=== PATIENT | female | born 2000 | race American Indian/Alaskan Native ===

== ENCOUNTER 2019-01-19 10:10 | Emergency (ER) | payer SELFPAY ==
--- NOTE | 2019-01-19 10:52 | Emergency Department Report ---
ED Female HPI - General Chief complaint: Urogenital-Female Stated complaint: VAGINAL ISSUES Time Seen by Provider: 01/19/19 10:30 Source: patient Mode of arrival: Ambulatory Limitations: No Limitations - History of Present Illness Initial comments: Patient is a 18-year-old female presents emergency room with complaints of pelvic cramping for 2 days. She has associated dysuria. States that she has also had some constipation and been straining to have a bowel movement. Patient had a bowel movement yesterday but was small and hard in consistency. she denies any abdominal pain, nausea, vomiting, diarrhea, fever, vaginal discharge, vaginal blisters or lesions. Last menstrual cycle was January 02. pt is sexually active and is concerned for STDs. Denies any STD in the past. she denies any past medical history or allergies medications. - Related Data Previous Rx's Medication Instructions Recorded Last Taken Type Docusate Sodium [Colace] 100 mg PO BID PRN #20 capsule 01/19/19 Unknown Rx Magnesium Citrate [Citrate of 300 ml PO ONCE #1 solution 01/19/19 Unknown Rx Magnesia] Allergies Allergy/AdvReac Type Severity Reaction Status Date / Time No Known Allergies Allergy Unverified 01/19/19 10:14 ED Review of Systems ROS: Stated complaint: VAGINAL ISSUES Other details as noted in HPI Comment: All other systems reviewed and negative ED Past Medical Hx - Past Medical History Previous Medical History?: No - Surgical History Past Surgical History?: No - Social History Smoking Status: Never Smoker Substance Use Type: Alcohol - Medications Home Medications: Home Medications Medication Instructions Recorded Confirmed Last Taken Type Docusate Sodium [Colace] 100 mg PO BID PRN #20 capsule 01/19/19 Unknown Rx Magnesium Citrate [Citrate of 300 ml PO ONCE #1 solution 01/19/19 Unknown Rx Magnesia] ED Physical Exam - General Limitations: No Limitations General appearance: alert, in no apparent distress - Head Head exam: Present: atraumatic, normocephalic - Eye Eye exam: Present: normal appearance - ENT ENT exam: Present: mucous membranes moist - GI/Abdominal GI/Abdominal exam: Present: soft. Absent: distended, tenderness, guarding, rebound, rigid - External exam: Present: normal external exam. Absent: erythema, swelling, lesions, lacerations, ecchymosis, bleeding Speculum exam: Present: vaginal discharge (white/foul odor), cervical discharge (white/foul odor), other (family sociologist: CORNELIUS brooks). Absent: erythema, vaginal bleeding, foreign body, tissue, laceration Bi-manual exam: Present: normal bi-manual exam. Absent: cervical motion tendernes, adnexal tenderness, adnexal mass ED Course Vital Signs 01/19/19 10:16 Temperature 98.8 F Pulse Rate 79 Respiratory 16 Rate Blood Pressure 142/82 O2 Sat by Pulse 99 Oximetry ED Medical Decision Making - Medical Decision Making Patient is a 18-year-old female presents emergency room with complaints of pelvic cramping for 2 days. She has associated dysuria. States that she has also had some constipation and been straining to have a bowel movement. Patient had a bowel movement yesterday but was small and hard in consistency. she denies any abdominal pain, nausea, vomiting, diarrhea, fever, vaginal discharge, vaginal blisters or lesions. Last menstrual cycle was January 02. pt is sexually active and is concerned for STDs. Denies any STD in the past. she denies any past medical history or allergies medications. vitals are normal. no abd tenderness on exam, normal bowel sounds. pelvic examination performed with family sociologist and white/foul odor discharge present, no CMT, no adnexal masses/tenderness, no clinic signs of PID. UA without evidence of UTI. urine preg negative. wet prep is normal. G/C swab sent. Patient treated prophylactically for G/C with azithromycin and ceftriaxone. pt given magnesium citrate and colace for her constipation, pt has no obstructive signs/sx. advised pt to please take medication as prescribed. Please increase your water and fiber intake. Please go to medical records in 1 week for results of your tests, you have been treated for these. please have your partner tested and treated as well. Abstain from sexual intercourse for 10 days. Please seen by the REHABILITATION AIDE or the health department for further STD testing. Return to the emergency room for any new or worsening symptoms. - Differential Diagnosis STD, BV, yeast, vaginitis, UTI, ovarian cyst, PID Critical care attestation.: If time is entered above; I have spent that time in minutes in the direct care of this critically ill patient, excluding procedure time. ED Disposition Clinical Impression: Pelvic cramping, Dysuria Constipation Qualifiers: Constipation type: unspecified constipation type Qualified Code(s): K59.00 - Constipation, unspecified Disposition: DC-01 TO HOME OR SELFCARE Is pt being admited?: No Does the pt Need Aspirin: No Condition: Stable Instructions: Constipation (ED), Sexually Transmitted Diseases (ED), Safe Sex (ED), High Fiber Diet (ED), Dysuria (ED) Additional Instructions: Please take medication as prescribed. Please increase your water and fiber intake. Please go to medical records in 1 week for results of your tests, you have been treated for these. please have your partner tested and treated as well. Abstain from sexual intercourse for 10 days. Please seen by the REHABILITATION AIDE or the health department for further STD testing. Return to the emergency room for any new or worsening symptoms. Prescriptions: Magnesium Citrate [Citrate of Magnesia] 300 ml PO ONCE #1 solution Docusate Sodium [Colace] 100 mg PO BID PRN #20 capsule PRN Reason: Constipation Referrals: HARJIT CONNER MD [Staff Physician] - 2-3 Days [facility] [Outside] - 2-3 Days Time of Disposition: 12:24 Print Language: SYRIAN
[2019-01-19 11:52] LABS: Bilirubin,Urine NEG (Negative); Blood,Urine NEG (Negative); Color,Urine Yellow (Yellow); Mucus,Urine FEW /HPF; Protein,Urine <15 mg/dL mg/dL (Negative); Urobilinogen,Urine < 2.0 mg/dL (<2.0)
[2019-01-19 12:06] LABS: HCG Qualitative,Urine Negative (Negative)
[2019-01-19] MEDS ORDERED: LIDOCAINE-MPF (1%) 10 MG/1 ML VIAL 5 ML INFILTRATI ONE (12:23)
[2019-01-19] MEDS ORDERED: AZITHROMYCIN 1 GM ORAL PWDR PACKET PO ONE (12:23)
[2019-01-19 13:00] VITALS: BP 126/79
== END 2019-01-19 13:02 | disposition home or self-care (01) ==
LOC: ED 10:10
DX: K59.00 Constipation, unspecified (principal); R10.2 Pelvic and perineal pain; R30.0 Dysuria; Z79.899 Other long term (current) drug therapy
CPT/HCPCS: 81001; 81025; 87210; 87591; 96372; 99284; J0696

== ENCOUNTER 2019-05-22 13:43 | Emergency (ER) | payer SELFPAY ==
[2019-05-22] MEDS ORDERED: IBUPROFEN 600 MG TAB PO ONE (15:38)
[2019-05-22 15:44] VITALS: BP 138/117
--- NOTE | 2019-05-22 15:52 | Emergency Department Report ---
Blank Doc - Documentation Documentation: 18-year-old female that presents with fever, chills, and URI symptoms. This initial assessment/diagnostic orders/clinical plan/treatment(s) is/are subject to change based on patient's health status, clinical progression and re- assessment by fellow clinical providers in the ED. Further treatment and workup at subsequent clinical providers discretion. Patient/guardians urged not to elope from the ED as their condition may be serious if not clinically assessed and managed. Initial orders include: 1- Patient sent to [facility] for further evaluation and treatment 2- CXR 3- Motrin
--- NOTE | 2019-05-22 16:08 | Emergency Department Report ---
Minor Respiratory - HPI Chief Complaint: Sore Throat Stated Complaint: COUGHING UP BLOOD Time Seen by Provider: 05/22/19 15:36 Duration: 5 Days Pain Location: Throat Severity: moderate Minor Respiratory: Yes Rhinorrhea, Yes Sore Throat, Yes Able to Tolerate Fluids, Yes Cough, Yes Hemoptysis, Yes Fever, No Ear Pain, No Sick Contacts, No Chest Pain, No Shortness of Breath Other History: 18-year-old healthy female presenting with complaints of congestion cough and sore throat, sinus drainage, "coughing up blood". Onset 5 days ago with associated low-grade fever though has not checked at home. No recent travel, no other medical problems, no meds daily. ED Review of Systems ROS: Stated complaint: COUGHING UP BLOOD Other details as noted in HPI Comment: All other systems reviewed and negative Constitutional: see HPI ENT: as per HPI Respiratory: see HPI ED Past Medical Hx - Past Medical History Previous Medical History?: No - Surgical History Past Surgical History?: No - Social History Smoking Status: Never Smoker Substance Use Type: None - Medications Home Medications: Home Medications Medication Instructions Recorded Confirmed Last Taken Type Docusate Sodium [Colace] 100 mg PO BID PRN #20 capsule 01/19/19 Unknown Rx Magnesium Citrate [Citrate of 300 ml PO ONCE #1 solution 01/19/19 Unknown Rx Magnesia] Albuterol Sulfate [Proventil Hfa] 1 - 2 puff IH Q6HR #1 hfa.aer.ad 05/22/19 Unknown Rx methylPREDNISolone [Medrol 4MG 4 mg PO DAILY #1 tab.ds.pk 05/22/19 Unknown Rx DOSEPAK (21 tabs)] Minor Respiratory Exam - Exam General: Vital signs noted. No distress. Alert and acting appropriately. HEENT: Yes Moist Mucous Membranes, No Pharyngeal Erythema (tonsils 2+), No Pharyngeal Exudates, No Rhinorrhea, No Conjuctival Injection, No Frontal Tenderness, No Maxillary Tenderness Ear: Neither TM Bulge, Neither TM Erythema, Neither EAC Pain, Neither EAC Discharge Neck: Yes Supple, No Adenopathy Lungs: Yes Good Air Exchange, No Wheezes, No Ronchi, No Stridor, No Cough, No Labored Respirations, No Retractions, No Use of Accessory Muscles, No Other Abnormal Lung Sounds Heart: Yes Regular, No Murmur Abdomen: Yes Normal Bowel Sounds, No Tenderness, No Peritoneal Signs Skin: No Rash, No Edema Neurologic: Alert and oriented, no deficits. Musculoskeletal: Unremarkable. ED Course Vital Signs 05/22/19 05/22/19 15:38 15:45 Temperature 99.8 F H Pulse Rate 108 H Respiratory 20 20 Rate Blood Pressure 138/117 O2 Sat by Pulse 100 Oximetry ED Medical Decision Making - Radiology Data Radiology results: report reviewed, image reviewed No acute findings as interpreted by me and confirmed by radiology - Medical Decision Making Patient presented with congestion, sinus drainage, sore throat, cough, hemoptysis. On exam, lungs are clear, heart sounds normal, postnasal drip noted, 2+ tonsils that are not erythematous and no exudate. Chest x-ray was obtained showing no acute findings. I suspect bronchitis as the cause of symptoms. We will treat with steroid and inhaler and have her follow-up with PCP. Return precautions given. Low suspicion for pulmonary embolism, pneumonia, malignancy. - Differential Diagnosis Bronchitis, pneumonia, sinusitis Critical care attestation.: If time is entered above; I have spent that time in minutes in the direct care of this critically ill patient, excluding procedure time. ED Disposition Clinical Impression: Acute bronchitis Qualifiers: Bronchitis organism: unspecified organism Qualified Code(s): J20.9 - Acute bronchitis, unspecified Disposition: DC-01 TO HOME OR SELFCARE Is pt being admited?: No Condition: Good Instructions: Acute Bronchitis (ED) Prescriptions: methylPREDNISolone [Medrol 4MG DOSEPAK (21 tabs)] 4 mg PO DAILY #1 tab.ds.pk Albuterol Sulfate [Proventil Hfa] 1 - 2 puff IH Q6HR #1 hfa.aer.ad Referrals: JESSIKA ZAYAS MD [Referring] - 3-5 Days Time of Disposition: 16:45
--- NOTE | 2019-05-22 16:37 | XRay Report ---
CHEST 2 VIEWS INDICATION: cough. COMPARISON: None. FINDINGS: Support devices: None. Heart: Within normal limits. Lungs/Pleura: No acute air space or interstitial disease. No significant pleural effusion. IMPRESSION: No acute findings. Signer Name: Mikal Shore MD Signed: 05/22/2019 4:32 PM Workstation Name: [id number]
== END 2019-05-22 17:16 | disposition home or self-care (01) ==
LOC: ED 13:43
DX: J20.9 Acute bronchitis, unspecified (principal)
CPT/HCPCS: 71046; 99283

== ENCOUNTER 2019-12-25 21:11 | Emergency (ER) | payer SELFPAY ==
[2019-12-25 22:08] VITALS: BP 129/71
--- NOTE | 2019-12-26 00:28 | Emergency Department Report ---
HPI - General Chief Complaint: Back Pain/Injury Time Seen by Provider: 12/26/19 00:17 - HPI HPI: This is a 19-year-old female presents to the emergency department with complaint of pain to the lower back that radiates to the left hip and pelvis. Overall this has been going on for the past month but worsened significantly since this morning. She denies any dysuria, vaginal bleeding or discharge, fever. Patient also complains of having a significant amount of nausea without vomiting. For all these reasons the patient is also concerned that she could be . However, her last menstrual cycle was 12/09/2019. She has not taken anything for symptoms prior to presentation. No recent travel or sick contacts at home. She does not have a primary care physician. Denies any past medical history. ED Past Medical Hx - Past Medical History Previous Medical History?: No - Surgical History Past Surgical History?: No - Social History Smoking Status: Current Every Day Smoker Substance Use Type: Alcohol - Medications Home Medications: Home Medications Medication Instructions Recorded Confirmed Last Taken Type Docusate Sodium [Colace] 100 mg PO BID PRN #20 capsule 01/19/19 Unknown Rx Magnesium Citrate [Citrate of 300 ml PO ONCE #1 solution 01/19/19 Unknown Rx Magnesia] Albuterol Sulfate [Proventil Hfa] 1 - 2 puff IH Q6HR #1 hfa.aer.ad 05/22/19 Unknown Rx methylPREDNISolone [Medrol 4MG 4 mg PO DAILY #1 tab.ds.pk 05/22/19 Unknown Rx DOSEPAK (21 tabs)] Ibuprofen [Motrin 800 MG tab] 800 mg PO Q8HR PRN #20 tablet 12/26/19 Unknown Rx Nitrofurantoin [place]/M-Cryst 100 mg PO Q12HR #14 capsule 12/26/19 Unknown Rx [Macrobid CAP] ED Review of Systems ROS: Stated complaint: LF SIDE PAIN Other details as noted in HPI Comment: All other systems reviewed and negative Constitutional: denies: chills, fever Respiratory: denies: cough, shortness of breath Cardiovascular: denies: chest pain Gastrointestinal: nausea. denies: abdominal pain, vomiting Genitourinary: denies: dysuria, discharge Musculoskeletal: back pain, arthralgia Neurological: denies: numbness, paresthesias Physical Exam - Physical Exam Vital Signs: Vital Signs 12/25/19 22:06 Temperature 98.4 F Pulse Rate 103 H Respiratory 17 Rate Blood Pressure 129/71 O2 Sat by Pulse 97 Oximetry Physical Exam: GENERAL: The patient is well-developed well-nourished. HENT: Normocephalic. Atraumatic. Patient has moist mucous membranes. EYES: Extraocular motions are intact. NECK: Supple. Trachea is midline. CHEST/LUNGS: Clear to auscultation. There is no respiratory distress noted. HEART/CARDIOVASCULAR: Regular. There is no tachycardia. ABDOMEN: Abdomen is soft, nontender. Patient has normal bowel sounds. Obese habitus. SKIN: Skin is warm and dry. NEURO: The patient is awake, alert, and oriented. The patient is cooperative. Normal speech. MUSCULOSKELETAL: There is no tenderness or deformity. There is no limitation range of motion. BACK: No midline thoracic or lumbar tenderness to palpation. There is some reproducible bilateral paraspinal lumbar tenderness to palpation. ED Course Vital Signs 12/25/19 22:06 Temperature 98.4 F Pulse Rate 103 H Respiratory 17 Rate Blood Pressure 129/71 O2 Sat by Pulse 97 Oximetry ED Medical Decision Making - Medical Decision Making This patient presents to the emergency department with a complaint of some nausea without vomiting, as well as some low back pain with some radiation towards the left hip and/or left pelvis. Patient denies any dysuria, vaginal bleeding or discharge. However a urinalysis does show a moderate urinary tract infection. Patient is not . Vital signs reassuring including being afebrile. The patient has been placed on Macrobid and ibuprofen. She has been given referrals for primary care and local orthopedist. She will return to the ER with any worsening of her symptoms or with any acute distress. Critical Care Time: No Critical care attestation.: If time is entered above; I have spent that time in minutes in the direct care of this critically ill patient, excluding procedure time. ED Disposition Clinical Impression: UTI (urinary tract infection) Qualifiers: Urinary tract infection type: acute cystitis Hematuria presence: without hematuria Qualified Code(s): N30.00 - Acute cystitis without hematuria Back pain Qualifiers: Back pain location: low back pain Chronicity: unspecified Back pain laterality: bilateral Sciatica presence: without sciatica Qualified Code(s): M54.5 - Low back pain Disposition: TO HOME OR SELFCARE Is pt being admited?: No Condition: Stable Instructions: Urinary Tract Infection in Women (ED), Back Pain (ED) Additional Instructions: Please follow-up with a primary care physician in the next few days. I am also giving you a referral for a local orthopedist, Dr. Guerin, to follow-up regarding your back pains. Take the medications as prescribed. Return to the e mergency department with any worsening of your symptoms or with any acute distress. Prescriptions: Nitrofurantoin [place]/M-Cryst [Macrobid CAP] 100 mg PO Q12HR #14 capsule Ibuprofen [Motrin 800 MG tab] 800 mg PO Q8HR PRN #20 tablet PRN Reason: Pain , Severe (7-10) Referrals: PRIMARY CAREMD [Primary Care Provider] - 3-5 Days CHANCE GUERIN MD [Staff Physician] - 3-5 Days Forms: Work/School Release Form(ED) Time of Disposition: 01:31
[2019-12-26 01:06] LABS: Bacteria,Urine 1+ /HPF (Negative); Bilirubin,Urine NEG (Negative); Blood,Urine NEG (Negative); Color,Urine Yellow (Yellow); Mucus,Urine 1+ /HPF; Protein,Urine <15 mg/dL mg/dL (Negative); Urobilinogen,Urine < 2.0 mg/dL (<2.0)
[2019-12-26 01:07] LABS: HCG Qualitative,Urine Negative (Negative)
[2019-12-26] MEDS ORDERED: NITROFURANTOIN MONOHYD/M-CRYST 100 MG CAP PO ONE (01:20)
[2019-12-26] MEDS ORDERED: KETOROLAC 30 MG/1 ML INJ IM ONE (01:20)
== END 2019-12-26 01:55 | disposition home or self-care (01) ==
LOC: ED 21:11
DX: N39.0 Urinary tract infection, site not specified (principal); F17.200 Nicotine dependence, unspecified, uncomplicated; Z79.899 Other long term (current) drug therapy
CPT/HCPCS: 81001; 81025; 87086; 99283; J1885